=== PATIENT | male | born 1960 | race African-American/Black ===

== ENCOUNTER → 2017-05-04 | Outpatient (CLI) | payer OTHER, MEDICARE ==
[2016-05-17 09:53] VITALS: BP 135/76
[~2017-05-04] MED LIST: CARV25TA2 PO; GLIM2TAB2 PO; SIMV10TA3 PO
--- NOTE | 2017-05-04 11:39 | RAD ---
Examination: 2 views of the left calcaneus History: History of intermittent left heel pain for 3 months Comparison: None available Findings: Small inferior calcaneal enthesophyte identified. There is no obvious acute fracture identified. Impression: 1. Small inferior plantar calcaneal enthesophyte identified. If there is clinical suspicion for plantar fasciitis a MRI can be considered.
== END | disposition home or self-care (01) ==
LOC: RAD 08:14
PROVIDERS: ATTEND Family Medicine
DX: M79.672 Pain in left foot (principal); E11.9 Type 2 diabetes mellitus without complications
CPT/HCPCS: 36415; 73650; 83036

== ENCOUNTER → 2018-03-06 | Outpatient (CLI) | payer MEDICARE, OTHER ==
[2016-05-17 09:53] VITALS: BP 135/76
[2018-03-06 10:18] LABS: BASO % 1 % (0-3); EOS # 1.2 x10^3/uL (0.0-0.7); EOS % 14 % (0-3); HEMATOCRIT 31.1 % (39.0-53.0); HEMOGLOBIN 10.4 g/dL (13.0-17.5); LYMPH # 2.2 x10^3/uL (1.0-4.8); LYMPH % 27 % (24-48); MEAN CORPUSCULAR HEMOGLOBIN 30 pg (25-35); MEAN CORPUSCULAR HGB CONC 34 g/dL (31-37); MEAN CORPUSCULAR VOLUME 88 fL (79-100); MONO # 0.6 x10^3/uL (0.0-1.1); MONO % 7 % (0-9); NEUT # 4.3 x10^3uL (1.8-7.7); NEUT % 51 % (31-73); PLATELET COUNT 416 x10^3/uL (140-400); RED BLOOD COUNT 3.54 x10^6/uL (4.30-5.70); RED CELL DISTRIBUTION WIDTH 17.5 % (11.5-14.5); WHITE BLOOD COUNT 8.4 x10^3/uL (4.0-11.0)
[2018-03-06 10:30] LABS: CHOLESTEROL/HDL RATIO 2.3
[2018-03-06 10:42] LABS: BILIRUBIN,URINE NEGATIVE (NEG); CLARITY,URINE CLEAR; COLOR,URINE YELLOW; NITRITE,URINE NEGATIVE (NEG); PROTEIN,URINE >=300 mg/dL (NEG-TRACE); UROBILINOGEN,URINE 0.2 mg/dL (0.2 mg/dL)
[2018-03-06 10:43] LABS: BACTERIA,URINE 0 /HPF (0-FEW); SQUAMOUS EPITHELIAL CELL,UR FEW /LPF
--- NOTE | 2018-03-06 11:32 | RAD ---
CHEST PA LATERAL dated 03/06/2018 10:16 AM. Comparison: 11/15/2014 Clinical Indication: COUGH X 2-3 MONTHS
UNABLE TO RAISE LEFT ARM DUE TO ROTATOR CUFF TEAR. Findings: PA and lateral views obtained. Heart and mediastinal contours are stable. Lungs are hyperinflated but otherwise clear. No consolidation or pleural effusion. No pneumothorax. Impression: No acute radiographic abnormality. Electronically signed by: Da Cueva MD (03/06/2018 11:29 AM) [facility]
[2018-03-06 11:47] LABS: % EOS 9 % (0-5); % LYMPHS 21 % (24-48); % MONOS 4 % (0-10); % SEGS 66 % (35-66); PLT ESTIMATE ADEQUATE (ADEQUATE)
[2018-03-06 19:15] LABS: PROLACTIN 25.9 ng/mL (4.0-15.2)
[2018-03-07 03:15] LABS: HEMOGLOBIN A1C 4.9 % (4.8-5.6)
== END | disposition home or self-care (01) ==
LOC: RAD 09:53
PROVIDERS: ATTEND Family Medicine
DX: Z12.5 Encounter for screening for malignant neoplasm of prostate (principal); E78.00 Pure hypercholesterolemia, unspecified; I12.9 Hypertensive chronic kidney disease with stage 1 through stage 4 chronic kidney disease, or unspecified chronic kidney disease; E11.22 Type 2 diabetes mellitus with diabetic chronic kidney disease; N18.9 Chronic kidney disease, unspecified; R05 Cough
CPT/HCPCS: 36415; 71046; 80061; 81001; 84146; 84402; 84403; 84443; 85007; 85025; G0103; 83036

== ENCOUNTER → 2019-04-10 | Outpatient (CLI) | payer MEDICARE, OTHER ==
[2016-05-17 09:53] VITALS: BP 135/76
[~2019-04-10] MED LIST changes: -GLIM2TAB2 PO; +GLIM2TAB3 PO
--- NOTE | 2019-04-10 17:04 | KCIC ---
EXAM: Left shoulder, 3 views. HISTORY: Popping during yard work. COMPARISON: None. FINDINGS: 3 views of the left shoulder obtained. There is no fracture, dislocation or subluxation. There is minimal acromioclavicular spurring. IMPRESSION: Minimal acromioclavicular osteoarthritis. Electronically signed by: Marianna Courtney MD (04/10/2019 5:01 PM) [facility]
== END | disposition home or self-care (01) ==
LOC: KCIC 14:11
PROVIDERS: ATTEND Family Medicine
DX: M75.22 Bicipital tendinitis, left shoulder (principal); M19.012 Primary osteoarthritis, left shoulder
CPT/HCPCS: 73030

== ENCOUNTER → 2019-11-05 | Day surgery (SDC) | payer MEDICARE, OTHER ==
[~2019-11-05] MED LIST changes: -GLIM2TAB3 PO; +GLIM2TAB7 PO; +HYDROmorphone 2 MG/ML VIAL IV PRN; +LIDOCAINE 1% PF 2 ML VIAL. ID PRN; +LIDOCAINE 2% PF 5 ML VIAL. ONE; +MORPHINE SULFATE 2 MG/ML VIAL. IV PRN; +ONDANSETRON PF 4 MG/2 ML VIAL. IV PRN; +PROCHLORPERAZINE 10 MG/2 ML VIAL. IV PRN; +PROPOFOL 20 ML IV ONE; +SIMV10TA15 PO; -SIMV10TA3 PO; +fentaNYL PF VIAL 100 MCG/2 ML VIAL IV PRN
[2019-11-05] MEDS: IV RINGERS,LACTATED 1000ML 1,000 ML IV SCH (13:38)
--- NOTE | 2019-11-05 13:56 | PDOC4 ---
PROCEDURE Procedure EGD/biopsies Indication: Dyspepsia/bloating Meds: per anesthesia. Findings: E--Grade B esophagitis at 45 cm. G--Erythema, petechiae, proximal stomach. Abrupt change to normal with striped erythema, erosions in antrum. Biopsies antrum and distal body. D--Erythema with focal edema, bulb. Second portion normal. Latricia. well. IMP: Reflux esophagitis. Suspect gastritis nodular duodenitis. REC: PPI daily. Await biopsies. F/u with me in 2 weeks. APN DIETRICH MD Nov 05, 2019 13:56
[2019-11-05 14:25] VITALS: BP 115/52
--- NOTE | 2019-11-06 16:06 | PATHOLOGY ---
[facility] Accession Number: [id number] . 01 Material submitted: . PART A: stomach - ANTRAL BX PART B: stomach - DISTAL BODY BX. Modifiers: distal . 01 Clinical history: . Bloating . 02 Diagnosis: A. Gastric biopsies, antrum: - Active chronic gastritis, moderate to marked, with Helicobacter organisms identified. . B. Gastric biopsies, distal gastric body: - Active chronic gastritis, moderate, with Helicobacter organisms identified. (JPM:[facility] 11/06/2019) [facility] 11/06/2019 0852 Local . 02 Comment: Sections of the gastric antral biopsy show moderate to marked active chronic inflammation. A properly controlled immunoperoxidase stain for Helicobacter reveals prominent numbers of Helicobacter organisms. . Sections of the distal gastric body biopsy show superficial moderate active chronic inflammation. A properly controlled immunoperoxidase stain for Helicobacter reveals prominent numbers of Helicobacter organisms. . There is no evidence of malignancy. (JPM:[facility] 11/06/2019) . Special stain performed: Immunoperoxidase for Helicobacter on A1 and B1. . 02 Electronically signed: . Ulises Cyr MD, Pathologist NPI- [id number] . 01 Gross description: . A. The specimen is received in formalin, labeled "Maxim, Miller, antral BX" and consists of 3 fragments of [place] tissue measuring between 0.2 x 0.2 cm and 0.4 x 0.2 cm which are entirely submitted in A1. . B. The specimen is received in formalin, labeled "Maxim, Miller, distal body BX" and consists of 3 fragments of pink-plaza tissue measuring between 0.2 x 0.2 cm and 0.5 x 0.2 cm which are entirely submitted in B1. (SDY; 11/05/2019) [facility] 11/05/[address] [place] [address] . 02 Pathologist provided ICD-10: K29.50, B96.81 . 02 CPT . 065855, [id number], [id number] Specimen Comment: A courtesy copy of this report has been sent to [phone], [phone] Specimen Comment: [id number] Specimen Comment: Report sent to / DR ANNE Performed at: 01 [facility] [address], [place] [id number] MD Alex James MD Phone: [phone] Performed at: 02 [facility] [address] [place], [place] [id number] MD Ulises Cyr MD Phone: [phone]
== END ==
LOC: SURG 13:07
PROVIDERS: ATTEND Internal Medicine Gastroenterology
DX: R13.10 Dysphagia, unspecified (principal); K21.0 Gastro-esophageal reflux disease with esophagitis; K31.89 Other diseases of stomach and duodenum; E11.22 Type 2 diabetes mellitus with diabetic chronic kidney disease; I12.0 Hypertensive chronic kidney disease with stage 5 chronic kidney disease or end stage renal disease; N18.6 End stage renal disease; E78.5 Hyperlipidemia, unspecified; Z98.890 Other specified postprocedural states; Z79.84 Long term (current) use of oral hypoglycemic drugs
CPT/HCPCS: 43239; 88305; 88342; J2704; J3490

== ENCOUNTER → 2020-03-27 | Outpatient (CLI) | payer MEDICARE, BC ==
[2019-11-05 14:25] VITALS: BP 115/52
[~2020-03-27] MED LIST changes: -HYDROmorphone 2 MG/ML VIAL IV PRN; -LIDOCAINE 1% PF 2 ML VIAL. ID PRN; -LIDOCAINE 2% PF 5 ML VIAL. ONE; -MORPHINE SULFATE 2 MG/ML VIAL. IV PRN; -ONDANSETRON PF 4 MG/2 ML VIAL. IV PRN; -PROCHLORPERAZINE 10 MG/2 ML VIAL. IV PRN; -PROPOFOL 20 ML IV ONE; -fentaNYL PF VIAL 100 MCG/2 ML VIAL IV PRN
--- NOTE | 2020-03-27 15:41 | KCIC ---
STUDY: MRI of the right knee without contrast INDICATION: Chronic right knee pain which involves the quadriceps tendon that has been previously repaired. COMPARISON: 06/15/2016 TECHNIQUE: Multiplanar MR imaging of the right knee performed without the use of intravenous or intra-articular contrast. FINDINGS: Menisci: Heterogeneous meniscal signal involving the medial meniscus posterior horn and lateral meniscus anterior horn/root. The medial meniscal signal is essentially no different from 2016. The findings at the lateral meniscus anterior horn/root are more noticeable from the prior and suspicious for a subtle tear. Cruciate ligaments: Intact. Collateral ligaments: Intact/unchanged. Tendons: Susceptibility artifact at the anterior knee corresponding to quadriceps tendon repair. Redemonstration of thickened [place] quadriceps tendon forming an inverted Y-shape with the two limbs remaining attached to the peripheral margins of the patella. Bridging the two limbs is a newly seen flap of thick tissue that is predominantly hypointense but with intermixed T2 signal elevation extending downwards towards to the mid patella. The configuration suggests a [place]-type surgical technique. Though the flap of tissue is heterogeneous and with small areas of fluid signal, it is predominantly intact and without a high-grade or full-thickness defect. The proximal portion attached to the [place] tendon is not lax to suggest disruption at this location as well. Similar degree of chronic thickening of the patellar tendon most notable at its proximal pole. The degree of patellar tendon redundancy along its medial aspect, image 19 series 6, is slightly less pronounced. The rest of the tendons at the knee are intact. Cartilage: Patellofemoral: High-grade/full-thickness chondral defects involving portions of the medial and lateral patellar facets and median ridge are relatively similar to the comparison. 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 Lateral compartment: No newly seen small but high-grade or full-thickness chondral defect at the weightbearing lateral femoral condyle measuring 3.5 mm transverse by 4 mm AP, image 13 series 8 and image 29 series 3. Medial compartment: No newly seen high-grade or full-thickness chondrosis. Bones: Slight less pronounced patella baja. Chronic osseous remodeling of the patella. No acute fracture or aggressive marrow signal abnormality. Miscellaneous: Small knee joint effusion. Edema superficial to the patellar tendon without bursal fluid distention. Small Parnell's cyst is faintly smaller. In general, mild diffuse muscular fatty infiltration as progressed. IMPRESSION: 1. Sequela of quadriceps tendon repair favored with a [place]-type surgical technique. There are no findings to suggest disruption of the surgical flap both above the previous tear site or at the patella. The [place] tendons remain intact. Slightly less patella baja from the 2016 comparison suggesting maintained integrity of the surgically repaired quadriceps as well. 2. Either progression of myxoid degeneration or development of a subtle oblique tear within the anterior anterior horn/root of the lateral meniscus. The medial meniscus is intact. Intact cruciate and collateral ligaments. 3. High-grade/full-thickness chondrosis involving the patella is similar to the comparison. There has been development of a small high-grade or full-thickness chondral defect at the weightbearing lateral femoral condyle measuring 3.5 x 4 mm. 4. No significant change in the extent of proximal patellar tendinosis. 5. Small knee joint effusion. Edema-like signal superficial to the patellar tendon but without findings of bursitis. Electronically signed by: BRANDO PAN MD (03/27/2020 3:38 PM) [id number]
== END | disposition home or self-care (01) ==
LOC: KCIC MRI 13:31
PROVIDERS: ATTEND Orthopaedic Surgery
DX: M25.461 Effusion, right knee (principal); M76.51 Patellar tendinitis, right knee; G89.29 Other chronic pain
CPT/HCPCS: 73721